=== PATIENT | male | born 1990 | race Two or more races ===

== ENCOUNTER 2019-01-03 22:16 | Emergency (ER) | payer SELFPAY ==
[~2019-01-03] VITALS: Ht 167.6 cm; Wt 90.7 kg
[~2019-01-03 22:16] MED LIST: METH-532 PO; TRAM50TA2 PO
[2019-01-03 22:41] LABS: Basophils # (auto) 0.1 uL; Basophils % (auto) 0.6 % (0.0-2.0); Eosinophils # (auto) 0.2 uL; Eosinophils % (auto) 1.5 % (0.0-7.0); Hematocrit 49.4 % (41.0-53.0); Hemoglobin 16.8 g/dL (13.5-17.5); Lymphocytes # (auto) 4.7 uL; Lymphocytes % (auto) 33.2 % (10.0-50.0); Mean Corpuscular Hemoglobin 31.6 pg (28.0-32.0); Mean Corpuscular Hgb Conc. 34.1 g/dL (32.0-36.0); Mean Corpuscular Volume 92.9 fL (80.0-100.0); Monocytes # (auto) 1.9 uL; Monocytes % (auto) 13.4 % (0.0-12.0); Neutrophils # (auto) 7.3 uL; Neutrophils % (auto) 51.3 % (37.0-80.0); Nucleated Red Blood Cells % 0.2 %; Platelet Count (auto) 278 10^3/uL (140-450); Red Blood Cells 5.32 10^6/uL (4.5-5.90); Red Cell Distribution Width 12.7 % (11.8-14.3); White Blood Cell 14.3 10^3/uL (4.4-10.8)
[2019-01-03 22:57] LABS: INR 0.96 (0.9-1.15); Partial Thromboplastin Time 27.1 sec (23.64-32.05); Prothrombin Time 10.4 sec (9.06-12.60)
[2019-01-03 23:00] LABS: Alanine Aminotransferase 79 U/L (16-61); Albumin 4.5 g/dL (3.4-5.0); Anion Gap 10 (5-15); Blood Urea Nitrogen 10 mg/dL (7-18); Carbon Dioxide 27 mmol/L (21-32); Chloride 102 mmol/L (98-107); Glucose 107 mg/dL (74-106); Magnesium 2.5 mg/dL (1.6-2.6); Potassium 3.4 mmol/L (3.5-5.1); Sodium 139 mmol/L (136-145)
[2019-01-03 23:05] LABS: Alkaline Phosphatase 91 U/L (45-117); Aspartate Aminotransferase 24 U/L (15-37); BUN/Creatinine Ratio 10.2; Bilirubin, Total 0.6 mg/dL (0.2-1.0); GFR African American 116 mL/min; GFR Non-African American 96 mL/min; Total Protein 8.5 g/dL (6.4-8.2)
[2019-01-04] MEDS ORDERED: SODIUM CHLORIDE 0.9% 1,000 ML IV ONE (01:48)
[2019-01-04] MEDS ORDERED: cefTRIAXone 1GM/50ML D5W 50 ML IV ONE (02:00)
[2019-01-04] MEDS ORDERED: MORPHINE SULFATE 4 MG/ML SYR/VIAL IV ONE (02:00)
[2019-01-04] MEDS ORDERED: ASPirin 81 mg TAB PO ONE (02:00)
[2019-01-04] MEDS ORDERED: IOHEXOL 350 MG/ML 100ML IJ ONE (02:10)
[2019-01-04] MEDS ORDERED: POTASSIUM CHL 10 Meq TABLET PO ONE (05:30)
[2019-01-04 06:06] VITALS: BP 123/63
== END 2019-01-04 06:17 | disposition home or self-care (01) ==
LOC: ER 22:18
DX: R07.89 Other chest pain (principal); J40 Bronchitis, not specified as acute or chronic; J02.9 Acute pharyngitis, unspecified; F17.210 Nicotine dependence, cigarettes, uncomplicated
CPT/HCPCS: 36415; 71046; 71275; 80053; 83735; 83880; 84484; 85025; 85379; 85610; 85730; 87040; 93005; 94761; 96365; 96375; 99284; J0696; J2270; Q9967

== ENCOUNTER 2019-03-26 19:20 | Emergency (ER) | payer BC, MEDICAID ==
[~2019-03-26] VITALS: Ht 167.6 cm; Wt 87.5 kg
[2019-03-26 20:05] VITALS: BP 134/85
[2019-03-26 20:31] LABS: Basophils # (auto) 0.1 uL; Basophils % (auto) 0.8 % (0.0-2.0); Eosinophils # (auto) 0.1 uL; Eosinophils % (auto) 1.5 % (0.0-7.0); Hematocrit 46.1 % (41.0-53.0); Hemoglobin 15.4 g/dL (13.5-17.5); Lymphocytes # (auto) 2.8 uL; Lymphocytes % (auto) 29.9 % (10.0-50.0); Mean Corpuscular Hgb Conc. 33.5 g/dL (32.0-36.0); Mean Corpuscular Volume 95.6 fL (80.0-100.0); Monocytes # (auto) 1.1 uL; Monocytes % (auto) 11.9 % (0.0-12.0); Neutrophils # (auto) 5.2 uL; Neutrophils % (auto) 55.9 % (37.0-80.0); Platelet Count (auto) 235 10^3/uL (140-450); Red Blood Cells 4.83 10^6/uL (4.5-5.90); Red Cell Distribution Width 12.9 % (11.8-14.3); White Blood Cell 9.4 10^3/uL (4.4-10.8)
[2019-03-26 20:35] LABS: Albumin 4.3 g/dL (3.4-5.0); Anion Gap 9 (5-15); Blood Urea Nitrogen 6 mg/dL (7-18); Carbon Dioxide 24 mmol/L (21-32); Chloride 105 mmol/L (98-107); Glucose 94 mg/dL (74-106); Magnesium 2.7 mg/dL (1.6-2.6); Potassium 3.7 mmol/L (3.5-5.1); Sodium 138 mmol/L (136-145)
[2019-03-26 20:40] LABS: Alanine Aminotransferase 46 U/L (16-61); Alkaline Phosphatase 91 U/L (45-117); Aspartate Aminotransferase 19 U/L (15-37); BUN/Creatinine Ratio 7.7; Bilirubin, Total 1.2 mg/dL (0.2-1.0); GFR African American 151 mL/min; GFR Non-African American 125 mL/min; Total Protein 8.1 g/dL (6.4-8.2)
== END 2019-03-26 23:01 | disposition left against medical advice (07) ==
LOC: ER 19:24
DX: R00.2 Palpitations (principal); R07.9 Chest pain, unspecified; Z53.21 Procedure and treatment not carried out due to patient leaving prior to being seen by health care provider
CPT/HCPCS: 36415; 71045; 80053; 83735; 83880; 84484; 85025

== ENCOUNTER 2019-05-03 23:10 | Emergency (ER) | payer MEDICAID ==
[~2019-05-03] VITALS: Ht 167.6 cm; Wt 86.2 kg
[2019-05-03 23:21] VITALS: BP 127/55
[2019-05-03 23:52] LABS: Basophils # (auto) 0 uL; Basophils % (auto) 0.4 % (0.0-2.0); Eosinophils # (auto) 0.2 uL; Eosinophils % (auto) 1.6 % (0.0-7.0); Hematocrit 46.9 % (41.0-53.0); Hemoglobin 15.9 g/dL (13.5-17.5); Lymphocytes # (auto) 3.8 uL; Lymphocytes % (auto) 34.9 % (10.0-50.0); Mean Corpuscular Hemoglobin 32.2 pg (28.0-32.0); Mean Corpuscular Volume 94.7 fL (80.0-100.0); Monocytes # (auto) 1.2 uL; Monocytes % (auto) 10.9 % (0.0-12.0); Neutrophils # (auto) 5.7 uL; Neutrophils % (auto) 52.2 % (37.0-80.0); Platelet Count (auto) 237 10^3/uL (140-450); Red Blood Cells 4.95 10^6/uL (4.5-5.90); Red Cell Distribution Width 12.9 % (11.8-14.3); White Blood Cell 10.8 10^3/uL (4.4-10.8)
[2019-05-04 00:08] LABS: Alanine Aminotransferase 77 U/L (16-61); Albumin 4.4 g/dL (3.4-5.0); Anion Gap 9 (5-15); Aspartate Aminotransferase 27 U/L (15-37); BUN/Creatinine Ratio 13.6; Blood Urea Nitrogen 11 mg/dL (7-18); Calcium 8.9 mg/dL (8.5-10.1); Carbon Dioxide 27 mmol/L (21-32); Chloride 102 mmol/L (98-107); GFR African American 145 mL/min; GFR Non-African American 120 mL/min; Glucose 94 mg/dL (74-106); Magnesium 2.7 mg/dL (1.6-2.6); Potassium 3.9 mmol/L (3.5-5.1); Sodium 138 mmol/L (136-145)
[2019-05-04 00:10] LABS: Urine Bacteria NONE SEEN /hpf (None Seen); Urine Blood Negative /uL (Negative); Urine Specific Gravity 1.019 (1.001-1.035); Urine WBC 1 /hpf (0 - 3)
[2019-05-04 00:13] LABS: Alkaline Phosphatase 81 U/L (45-117); Bilirubin, Total 0.6 mg/dL (0.2-1.0)
[2019-05-04 00:25] LABS: Alcohol, Urine < 3.0 mg/dL (0-5); Amphetamine Screen, Urine NEGATIVE (NEGATIVE); Barbiturate Scree,Urine NEGATIVE (NEGATIVE); Benzodiazephine Screen, Urine NEGATIVE (NEGATIVE); Cannabinoid Screen, Urine NEGATIVE (NEGATIVE); Cocaine Screen, Urine NEGATIVE (NEGATIVE); Opiate Scree,Urine NEGATIVE (NEGATIVE); Phencyclidine Screen, Urine NEGATIVE (NEGATIVE)
== END 2019-05-04 04:13 | disposition left against medical advice (07) ==
LOC: ER 23:12
DX: R00.2 Palpitations (principal); Z53.21 Procedure and treatment not carried out due to patient leaving prior to being seen by health care provider
CPT/HCPCS: 36415; 80053; 80307; 81001; 83735; 84484; 85025

== ENCOUNTER 2019-05-17 13:44 | Emergency (ER) | payer MEDICAID ==
[~2019-05-17] VITALS: Ht 167.6 cm; Wt 86.2 kg
[2019-05-17] MEDS ORDERED: ASPirin 81 mg TAB PO ONE (14:00)
[2019-05-17 14:46] LABS: Basophils # (auto) 0 uL; Basophils % (auto) 0.5 % (0.0-2.0); Eosinophils # (auto) 0.1 uL; Eosinophils % (auto) 1.6 % (0.0-7.0); Hematocrit 50.2 % (41.0-53.0); Hemoglobin 17.1 g/dL (13.5-17.5); Lymphocytes # (auto) 2.1 uL; Lymphocytes % (auto) 25.7 % (10.0-50.0); Mean Corpuscular Hemoglobin 31.8 pg (28.0-32.0); Mean Corpuscular Hgb Conc. 34.2 g/dL (32.0-36.0); Mean Corpuscular Volume 93.1 fL (80.0-100.0); Monocytes # (auto) 0.6 uL; Monocytes % (auto) 7.4 % (0.0-12.0); Neutrophils # (auto) 5.4 uL; Neutrophils % (auto) 64.8 % (37.0-80.0); Nucleated Red Blood Cells % 0.1 %; Platelet Count (auto) 267 10^3/uL (140-450); Red Blood Cells 5.39 10^6/uL (4.5-5.90); Red Cell Distribution Width 12.8 % (11.8-14.3); White Blood Cell 8.4 10^3/uL (4.4-10.8)
[2019-05-17 15:09] LABS: Alanine Aminotransferase 72 U/L (16-61); Albumin 4.4 g/dL (3.4-5.0); Anion Gap 7 (5-15); Aspartate Aminotransferase 28 U/L (15-37); Blood Urea Nitrogen 10 mg/dL (7-18); Calcium 9.4 mg/dL (8.5-10.1); Carbon Dioxide 27 mmol/L (21-32); Chloride 104 mmol/L (98-107); Glucose 125 mg/dL (74-106); Magnesium 2.4 mg/dL (1.6-2.6); Potassium 3.9 mmol/L (3.5-5.1); Sodium 138 mmol/L (136-145)
[2019-05-17 15:14] LABS: Alkaline Phosphatase 100 U/L (45-117); BUN/Creatinine Ratio 12.3; Bilirubin, Total 1.1 mg/dL (0.2-1.0); GFR African American 145 mL/min; GFR Non-African American 120 mL/min; Total Protein 8.2 g/dL (6.4-8.2)
[2019-05-17 17:39] LABS: Urine WBC None Seen /hpf (0 - 3)
[2019-05-17 17:44] VITALS: BP 125/81
[2019-05-17 17:51] LABS: Urine Bacteria NONE SEEN /hpf (None Seen); Urine Blood Negative /uL (Negative); Urine Specific Gravity 1.028 (1.001-1.035)
[2019-05-17 18:01] LABS: Alcohol, Urine < 3.0 mg/dL (0-5); Amphetamine Screen, Urine NEGATIVE (NEGATIVE); Barbiturate Scree,Urine NEGATIVE (NEGATIVE); Benzodiazephine Screen, Urine NEGATIVE (NEGATIVE); Cannabinoid Screen, Urine NEGATIVE (NEGATIVE); Cocaine Screen, Urine NEGATIVE (NEGATIVE); Opiate Scree,Urine NEGATIVE (NEGATIVE); Phencyclidine Screen, Urine NEGATIVE (NEGATIVE)
== END 2019-05-17 17:45 | disposition home or self-care (01) ==
LOC: ER 13:44
DX: R07.89 Other chest pain (principal); F17.210 Nicotine dependence, cigarettes, uncomplicated; Z79.899 Other long term (current) drug therapy
CPT/HCPCS: 36415; 71045; 80053; 80307; 81001; 83735; 84484; 85025; 93005; 94761

== ENCOUNTER 2019-05-31 11:27 | Emergency (ER) | payer MEDICAID ==
[~2019-05-31] VITALS: Ht 167.6 cm; Wt 81.6 kg
[2019-05-31 11:40] VITALS: BP 129/73
[2019-05-31 12:17] LABS: Basophils # (auto) 0.1 uL; Basophils % (auto) 0.8 % (0.0-2.0); Eosinophils # (auto) 0.2 uL; Eosinophils % (auto) 2.3 % (0.0-7.0); Hematocrit 47.7 % (41.0-53.0); Hemoglobin 16.1 g/dL (13.5-17.5); Lymphocytes # (auto) 2.1 uL; Lymphocytes % (auto) 30.1 % (10.0-50.0); Mean Corpuscular Hemoglobin 31.5 pg (28.0-32.0); Mean Corpuscular Hgb Conc. 33.7 g/dL (32.0-36.0); Mean Corpuscular Volume 93.6 fL (80.0-100.0); Monocytes # (auto) 0.7 uL; Monocytes % (auto) 10.1 % (0.0-12.0); Neutrophils # (auto) 3.9 uL; Neutrophils % (auto) 56.7 % (37.0-80.0); Nucleated Red Blood Cells % 0.2 %; Platelet Count (auto) 216 10^3/uL (140-450); Red Cell Distribution Width 12.5 % (11.8-14.3); White Blood Cell 6.9 10^3/uL (4.4-10.8)
[2019-05-31 12:29] LABS: Alanine Aminotransferase 64 U/L (16-61); Albumin 4.3 g/dL (3.4-5.0); Anion Gap 8 (5-15); Aspartate Aminotransferase 34 U/L (15-37); BUN/Creatinine Ratio 8.8; Blood Urea Nitrogen 7 mg/dL (7-18); Calcium 8.9 mg/dL (8.5-10.1); Carbon Dioxide 25 mmol/L (21-32); Chloride 105 mmol/L (98-107); GFR African American 147 mL/min; GFR Non-African American 121 mL/min; Glucose 90 mg/dL (74-106); Magnesium 2.3 mg/dL (1.6-2.6); Potassium 3.8 mmol/L (3.5-5.1); Sodium 138 mmol/L (136-145)
[2019-05-31 12:34] LABS: Alkaline Phosphatase 96 U/L (45-117); Bilirubin, Total 1.7 mg/dL (0.2-1.0)
== END 2019-05-31 13:41 | disposition home or self-care (01) ==
LOC: ER 11:32
DX: R00.2 Palpitations (principal); E78.5 Hyperlipidemia, unspecified; I10 Essential (primary) hypertension; F17.210 Nicotine dependence, cigarettes, uncomplicated; Z79.899 Other long term (current) drug therapy
CPT/HCPCS: 36415; 71046; 80053; 83735; 84484; 85025; 93005

== ENCOUNTER 2019-07-01 13:07 | Emergency (ER) | payer MEDICAID ==
[~2019-07-01] VITALS: Ht 167.6 cm; Wt 79.4 kg
[2019-07-01] MEDS ORDERED: ASPirin 81 mg TAB PO ONE (14:30)
[2019-07-01 15:34] LABS: Basophils # (auto) 0 uL; Basophils % (auto) 0.4 % (0.0-2.0); Eosinophils # (auto) 0 uL; Eosinophils % (auto) 0.4 % (0.0-7.0); Hematocrit 44.7 % (41.0-53.0); Hemoglobin 14.6 g/dL (13.5-17.5); Lymphocytes # (auto) 1.8 uL; Mean Corpuscular Hemoglobin 31.1 pg (28.0-32.0); Mean Corpuscular Hgb Conc. 32.6 g/dL (32.0-36.0); Mean Corpuscular Volume 95.2 fL (80.0-100.0); Monocytes # (auto) 0.9 uL; Neutrophils # (auto) 8.6 uL; Neutrophils % (auto) 75.2 % (37.0-80.0); Platelet Count (auto) 198 10^3/uL (140-450); Red Blood Cells 4.69 10^6/uL (4.5-5.90); Red Cell Distribution Width 13.1 % (11.8-14.3); White Blood Cell 11.5 10^3/uL (4.4-10.8)
[2019-07-01 15:52] LABS: Albumin 4.2 g/dL (3.4-5.0); Anion Gap 6 (5-15); Carbon Dioxide 27 mmol/L (21-32); Chloride 105 mmol/L (98-107); Glucose 86 mg/dL (74-106); Potassium 4.1 mmol/L (3.5-5.1); Sodium 138 mmol/L (136-145)
[2019-07-01 15:54] LABS: Alanine Aminotransferase 36 U/L (16-61); Aspartate Aminotransferase 12 U/L (15-37); BUN/Creatinine Ratio 8.2; Bilirubin, Total 1.3 mg/dL (0.2-1.0); Blood Urea Nitrogen 6 mg/dL (7-18); GFR African American 163 mL/min; GFR Non-African American 135 mL/min; Total Protein 7.9 g/dL (6.4-8.2)
[2019-07-01 15:57] LABS: Alkaline Phosphatase 126 U/L (45-117)
[2019-07-01 16:52] VITALS: BP 120/74
== END 2019-07-01 16:56 | disposition home or self-care (01) ==
LOC: ER 13:30
DX: R07.9 Chest pain, unspecified (principal); F41.9 Anxiety disorder, unspecified; R42 Dizziness and giddiness; E78.5 Hyperlipidemia, unspecified; I10 Essential (primary) hypertension
CPT/HCPCS: 36415; 80053; 84484; 85025; 93005

== ENCOUNTER 2019-09-06 13:53 | Emergency (ER) | payer MEDICAID ==
[~2019-09-06] VITALS: Ht 167.6 cm; Wt 75.7 kg
[2019-09-06] MEDS ORDERED: SODIUM CHLORIDE 0.9% 1,000 ML IV ONE ×2 (15:15)
[2019-09-06 15:26] LABS: Urine Bacteria NONE SEEN /hpf (None Seen); Urine Blood Negative /uL (Negative); Urine Mucus FEW (None Seen); Urine Specific Gravity 1.023 (1.001-1.035); Urine WBC 1 /hpf (0 - 3)
[2019-09-06 15:41] LABS: Amphetamine Screen, Urine POSITIVE (NEGATIVE); Barbiturate Scree,Urine NEGATIVE (NEGATIVE); Benzodiazephine Screen, Urine NEGATIVE (NEGATIVE); Cannabinoid Screen, Urine NEGATIVE (NEGATIVE); Cocaine Screen, Urine POSITIVE (NEGATIVE); Phencyclidine Screen, Urine NEGATIVE (NEGATIVE)
[2019-09-06 15:45] LABS: Basophils # (auto) 0.1 uL; Basophils % (auto) 0.5 % (0.0-2.0); Eosinophils # (auto) 0 uL; Eosinophils % (auto) 0.4 % (0.0-7.0); Hematocrit 48.2 % (41.0-53.0); Hemoglobin 16.2 g/dL (13.5-17.5); Lymphocytes # (auto) 2.8 uL; Lymphocytes % (auto) 19.9 % (10.0-50.0); Mean Corpuscular Hemoglobin 31.5 pg (28.0-32.0); Mean Corpuscular Hgb Conc. 33.5 g/dL (32.0-36.0); Mean Corpuscular Volume 94.2 fL (80.0-100.0); Monocytes # (auto) 1.2 uL; Monocytes % (auto) 8.6 % (0.0-12.0); Neutrophils # (auto) 9.8 uL; Neutrophils % (auto) 70.6 % (37.0-80.0); Nucleated Red Blood Cells % 0.1 %; Platelet Count (auto) 266 10^3/uL (140-450); Red Blood Cells 5.12 10^6/uL (4.5-5.90); Red Cell Distribution Width 13.2 % (11.8-14.3); White Blood Cell 13.9 10^3/uL (4.4-10.8)
[2019-09-06 15:49] LABS: Opiate Scree,Urine NEGATIVE (NEGATIVE)
[2019-09-06 16:06] LABS: Alanine Aminotransferase 56 U/L (16-61); Albumin 4.6 g/dL (3.4-5.0); Anion Gap 8 (5-15); Aspartate Aminotransferase 20 U/L (15-37); BUN/Creatinine Ratio 11.8; Blood Urea Nitrogen 8 mg/dL (7-18); Calcium 9.2 mg/dL (8.5-10.1); Carbon Dioxide 26 mmol/L (21-32); Chloride 103 mmol/L (98-107); GFR African American 176 mL/min; GFR Non-African American 146 mL/min; Glucose 82 mg/dL (74-106); Potassium 4.1 mmol/L (3.5-5.1); Sodium 137 mmol/L (136-145)
[2019-09-06 16:10] LABS: Alkaline Phosphatase 123 U/L (45-117); Bilirubin, Total 0.8 mg/dL (0.2-1.0); Total Protein 8.8 g/dL (6.4-8.2)
[2019-09-06 17:59] VITALS: BP 137/80
== END 2019-09-06 18:22 | disposition home or self-care (01) ==
LOC: ER 13:53
DX: F41.9 Anxiety disorder, unspecified (principal); R00.2 Palpitations; F15.10 Other stimulant abuse, uncomplicated; F14.10 Cocaine abuse, uncomplicated; F10.10 Alcohol abuse, uncomplicated; R42 Dizziness and giddiness; F17.210 Nicotine dependence, cigarettes, uncomplicated; E78.5 Hyperlipidemia, unspecified; I10 Essential (primary) hypertension
CPT/HCPCS: 36415; 71045; 80053; 80307; 81001; 84443; 84484; 85025; 93005; 99284; J7030

== ENCOUNTER 2019-11-21 10:55 | Emergency (ER) | payer MEDICAID ==
[~2019-11-21] VITALS: Ht 167.6 cm; Wt 81.6 kg
[2019-11-21 11:07] VITALS: BP 143/89
== END 2019-11-21 12:46 | disposition home or self-care (01) ==
LOC: ER 10:55
DX: F41.8 Other specified anxiety disorders (principal); R06.02 Shortness of breath; I10 Essential (primary) hypertension; E78.5 Hyperlipidemia, unspecified; F17.210 Nicotine dependence, cigarettes, uncomplicated
CPT/HCPCS: 36415; 71045; 85379; 87070; 87804; 87880

== ENCOUNTER → 2020-05-31 | Emergency (ER) | payer MEDICAID ==
[~2020-05-31] VITALS: Ht 167.6 cm; Wt 72.6 kg
[2020-05-31 19:59] VITALS: BP 150/74
[2020-05-31 21:27] LABS: Basophils # (auto) 0.1 10 ^3/uL (0-0.2); Basophils % (auto) 0.8 % (0.0-2.0); Eosinophils # (auto) 0.1 10 ^3/uL (0-0.8); Eosinophils % (auto) 1.1 % (0.0-7.0); Hemoglobin 15.6 g/dL (13.5-17.5); Lymphocytes # (auto) 2.9 10 ^3/uL (0.4-5.4); Lymphocytes % (auto) 28.1 % (10.0-50.0); Mean Corpuscular Hemoglobin 32.4 pg (28.0-32.0); Mean Corpuscular Volume 95.4 fL (80.0-100.0); Monocytes % (auto) 9.4 % (0.0-12.0); Neutrophils # (auto) 6.2 10 ^3/uL (1.6-8.6); Neutrophils % (auto) 60.6 % (37.0-80.0); Nucleated Red Blood Cells % 0.1 %; Platelet Count (auto) 234 10^3/uL (140-450); Red Blood Cells 4.83 10^6/uL (4.5-5.90); Red Cell Distribution Width 13.2 % (11.8-14.3); White Blood Cell 10.2 10^3/uL (4.4-10.8)
[2020-05-31 21:46] LABS: INR 1.05 (0.9-1.15); Partial Thromboplastin Time 27.1 sec (23.0-31.2)
[2020-05-31 22:30] LABS: Albumin 4.7 g/dL (3.4-5.0); Anion Gap 5 (5-15); Blood Urea Nitrogen 11 mg/dL (7-18); Calcium 9.1 mg/dL (8.5-10.1); Carbon Dioxide 28 mmol/L (21-32); Chloride 105 mmol/L (98-107); Glucose 82 mg/dL (74-106); Potassium 4.1 mmol/L (3.5-5.1); Sodium 138 mmol/L (136-145)
[2020-05-31 22:36] LABS: Alanine Aminotransferase 30 U/L (16-61); Alkaline Phosphatase 71 U/L (45-117); Aspartate Aminotransferase 18 U/L (15-37); BUN/Creatinine Ratio 13.9; GFR African American 148 mL/min; GFR Non-African American 122 mL/min; Total Protein 8.1 g/dL (6.4-8.2)
== END | disposition left against medical advice (07) ==
LOC: ER 19:59
DX: R07.89 Other chest pain (principal); Z53.21 Procedure and treatment not carried out due to patient leaving prior to being seen by health care provider
CPT/HCPCS: 36415; 71045; 80053; 84484; 85025; 85610; 85730; 93005

== ENCOUNTER 2020-06-14 17:04 | Emergency (ER) | payer MEDICAID ==
[~2020-06-14] VITALS: Ht 167.6 cm; Wt 71.2 kg
[2020-06-14 17:14] VITALS: BP 114/83
[2020-06-14 17:58] LABS: Basophils # (auto) 0.1 10 ^3/uL (0-0.2); Basophils % (auto) 0.5 % (0.0-2.0); Eosinophils # (auto) 0.1 10 ^3/uL (0-0.8); Eosinophils % (auto) 1.2 % (0.0-7.0); Hematocrit 47.7 % (41.0-53.0); Hemoglobin 16.1 g/dL (13.5-17.5); Lymphocytes # (auto) 2.6 10 ^3/uL (0.4-5.4); Lymphocytes % (auto) 22.1 % (10.0-50.0); Mean Corpuscular Hemoglobin 32.2 pg (28.0-32.0); Mean Corpuscular Hgb Conc. 33.8 g/dL (32.0-36.0); Mean Corpuscular Volume 95.4 fL (80.0-100.0); Monocytes # (auto) 1.1 10 ^3/uL (0-1.3); Monocytes % (auto) 9.2 % (0.0-12.0); Nucleated Red Blood Cells % 0.1 %; Platelet Count (auto) 241 10^3/uL (140-450); Red Cell Distribution Width 12.9 % (11.8-14.3); White Blood Cell 11.9 10^3/uL (4.4-10.8)
[2020-06-14 18:19] LABS: Anion Gap 6 (5-15); Blood Urea Nitrogen 17 mg/dL (7-18); Calcium 9.8 mg/dL (8.5-10.1); Carbon Dioxide 27 mmol/L (21-32); Chloride 102 mmol/L (98-107); Glucose 89 mg/dL (74-106); Magnesium 2.7 mg/dL (1.6-2.6); Sodium 135 mmol/L (136-145)
[2020-06-14 18:25] LABS: Alanine Aminotransferase 39 U/L (16-61); Alkaline Phosphatase 82 U/L (45-117); Aspartate Aminotransferase 17 U/L (15-37); BUN/Creatinine Ratio 17.7; Bilirubin, Total 1.2 mg/dL (0.2-1.0); GFR African American 118 mL/min; GFR Non-African American 98 mL/min; Total Protein 8.4 g/dL (6.4-8.2)
== END 2020-06-14 20:21 | disposition left against medical advice (07) ==
LOC: ER 17:04
DX: R00.2 Palpitations (principal); F41.9 Anxiety disorder, unspecified; I10 Essential (primary) hypertension; E78.5 Hyperlipidemia, unspecified; Z79.899 Other long term (current) drug therapy
CPT/HCPCS: 36415; 71046; 80053; 83735; 84484; 85025

== ENCOUNTER 2020-10-05 10:40 | Emergency (ER) | payer MEDICAID ==
[~2020-10-05] VITALS: Ht 167.6 cm; Wt 77.1 kg
[2020-10-05 11:14] VITALS: BP 143/82
== END 2020-10-05 11:47 | disposition home or self-care (01) ==
LOC: ER 10:40
DX: S83.91XA Sprain of unspecified site of right knee, initial encounter (principal); E78.5 Hyperlipidemia, unspecified; I10 Essential (primary) hypertension; F17.210 Nicotine dependence, cigarettes, uncomplicated; X58.XXXA Exposure to other specified factors, initial encounter; Y93.89 Activity, other specified; Y92.89 Other specified places as the place of occurrence of the external cause; Y99.8 Other external cause status
CPT/HCPCS: 73562

== ENCOUNTER 2021-08-31 07:08 | Emergency (ER) | payer MEDICAID ==
[~2021-08-31] VITALS: Ht 167.6 cm; Wt 73.9 kg
[2021-08-31 08:38] VITALS: BP 133/76
== END 2021-08-31 08:35 | disposition home or self-care (01) ==
LOC: ER 07:08
DX: S09.90XA Unspecified injury of head, initial encounter (principal); I10 Essential (primary) hypertension; E78.5 Hyperlipidemia, unspecified; F17.210 Nicotine dependence, cigarettes, uncomplicated; W01.0XXA Fall on same level from slipping, tripping and stumbling without subsequent striking against object, initial encounter; Y93.89 Activity, other specified; Y92.89 Other specified places as the place of occurrence of the external cause; Y99.8 Other external cause status
CPT/HCPCS: 70450

== ENCOUNTER 2022-01-11 17:47 | Emergency (ER) | payer MEDICAID ==
[~2022-01-11] VITALS: Ht 167.6 cm; Wt 76.7 kg
[2022-01-11 17:52] VITALS: BP 122/81
[2022-01-11] MEDS ORDERED: ONDANSETRON HCL 4 MG/2 ML VIAL ONE (17:57)
[2022-01-11] MEDS ORDERED: IBUPROFEN 800 MG TAB PO ONE (18:00)
[2022-01-12] MEDS ORDERED: HYDR-4902 PO (17:33)
== END 2022-01-11 18:19 | disposition home or self-care (01) ==
LOC: ER 17:47
DX: B02.9 Zoster without complications (principal); I10 Essential (primary) hypertension; F17.210 Nicotine dependence, cigarettes, uncomplicated; E78.5 Hyperlipidemia, unspecified; Z79.899 Other long term (current) drug therapy
CPT/HCPCS: 99283; J2405

== ENCOUNTER 2022-01-12 16:02 | Emergency (ER) | payer MEDICAID ==
[~2022-01-12] VITALS: Ht 167.6 cm; Wt 76.7 kg
[2022-01-12 17:32] VITALS: BP 125/85
[2022-01-12] MEDS ORDERED: HYDR-4902 PO (17:33)
== END 2022-01-12 18:21 | disposition home or self-care (01) ==
LOC: ER 16:02
DX: G89.4 Chronic pain syndrome (principal); B02.9 Zoster without complications; I10 Essential (primary) hypertension; E78.5 Hyperlipidemia, unspecified; F17.210 Nicotine dependence, cigarettes, uncomplicated; Z79.899 Other long term (current) drug therapy